=== PATIENT | female | born 1970 | race Caucasian/White ===

== ENCOUNTER → 2016-06-02 | Outpatient (CLI) | payer BC ==
--- NOTE | 2016-06-03 14:24 | MAMMOGRAPHY REPORT ---
BILATERAL DIGITAL SCREENING MAMMOGRAM TOMOSYNTHESIS WITH CAD: 06/02/2016 CLINICAL HISTORY: Routine screening. Patient has no complaints. TECHNIQUE: Breast tomosynthesis in addition to standard 2D mammography was performed. Current study was also evaluated with a Computer Aided Detection (CAD) system. COMPARISON: Comparison is made to exams dated: 05/30/2015 mammogram, 03/24/2013 mammogram, 05/25/2014 m ammogram, 04/10/2013 mammogram, and 04/10/2013 ultrasound - [facility]. BREAST COMPOSITION: The tissue of both breasts is heterogeneously dense, which may obscure small ma sses. FINDINGS: There are fluctuating bilateral masses. Circumscribed borders are best appreciated on th e tomosynthesis images. These findings most likely represent benign fibrocystic changes/fluctuating cysts. No suspicious spiculated or irregular mass, architectural distortion or cluster of new susp icious microcalcifications is seen. IMPRESSION: ACR BI-RADS CATEGORY 1: NEGATIVE There is no mammographic evidence of malignancy. A 1 year screening mammogram is recommended. The p atient will receive written notification of the results. Approximately 10% of breast cancers are not detected with mammography. A negative mammographic repor t should not delay biopsy if a clinically suggestive mass is present. Janet Roldan M.D. ay/:06/02/2016 16:24:34 Extracting Machine Operator: Castro JACOB(R)(M), [facility] letter sent: Normal 1/2 BI-RADS Code: ACR BI-RADS Category 1: Negative
== END | disposition home or self-care (01) ==
LOC: C.MAMM 07:40
PROVIDERS: ATTEND Family Medicine
DX: Z12.31 Encounter for screening mammogram for malignant neoplasm of breast (principal)

== ENCOUNTER → 2017-03-29 | Outpatient (CLI) | payer BC | END | disposition home or self-care (01) | LOC: C.PAPS 10:18 | PROVIDERS: ATTEND Obstetrics & Gynecology | DX: Z01.419 Encounter for gynecological examination (general) (routine) without abnormal findings (principal) ==

== ENCOUNTER → 2017-04-26 | Outpatient (CLI) | payer BC ==
--- NOTE | 2017-04-26 13:24 | DIAGNOSTIC IMAGING REPORT ---
CHEST 2 VIEWS ROUTINE CLINICAL HISTORY: PNEUMONIA dyspnea COMPARISON STUDY: No previous studies for comparison. FINDINGS: The bones soft tissues and hemidiaphragms are normal. The cardiomediastinal silhouette is normal. The lungs are clear. The pulmonary vasculature is normal. IMPRESSION: Negative chest. The above report was generated using voice recognition software. It may contain grammatical, syntax or spelling errors. Electronically signed by: Reginaldo Carmona M.D. 04/26/2017 1:23 PM Dictated Date/Time: 04/26/2017 1:23 PM
== END | disposition home or self-care (01) ==
LOC: C.RADBC 13:13
PROVIDERS: ATTEND Family Medicine
DX: J18.9 Pneumonia, unspecified organism (principal)

== ENCOUNTER → 2017-06-09 | Outpatient (CLI) | payer OTHER ==
--- NOTE | 2017-06-09 15:38 | MAMMOGRAPHY REPORT ---
BILATERAL DIGITAL SCREENING MAMMOGRAM TOMOSYNTHESIS WITH CAD: 06/09/2017 CLINICAL HISTORY: Routine screening. Patient has no complaints. TECHNIQUE: Breast tomosynthesis in addition to standard 2D mammography was performed. Current study was also evaluated with a Computer Aided Detection (CAD) system. COMPARISON: Comparison is made to exams dated: 06/02/2016 mammogram, 05/30/2015 mammogram, 05/25/2014 ma mmogram, 04/10/2013 mammogram, 04/10/2013 ultrasound, and 03/24/2013 mammogram - [facility]. BREAST COMPOSITION: The tissue of both breasts is heterogeneously dense, which may obscure small mas ses. FINDINGS: There is a focal asymmetry with possible associated microcalcifications in the upper outer middle to posterior right breast, for which additional spot compression tomosynthesis, spot magnific ation views and possible ultrasound are recommended. There is fluctuating nodularity in the breasts. No other suspicious mass, architectural distortion o r cluster of suspicious microcalcifications is seen. IMPRESSION: ACR BI-RADS CATEGORY 0: INCOMPLETE EVALUATION: NEED ADDITIONAL IMAGING EVALUATION The focal asymmetry with possible associated microcalcifications in the right upper outer breast need s additional evaluation. The patient will be called to schedule an appointment. Approximately 10% of breast cancers are not detected with mammography. A negative mammographic report should not delay biopsy if a clinically suggestive mass is present. Janet Roldan M.D. ay/:06/09/2017 08:15:32 Wreath Inspector: Laura JACOB(Genoveva)(Rizwana), [facility] letter sent: Addl Imaging 0 BI-RADS Code: ACR BI-RADS Category 0: Incomplete Evaluation: Need Additional Imaging Evaluation
== END | disposition home or self-care (01) ==
LOC: C.MAMM 07:18
PROVIDERS: ATTEND Family Medicine
DX: Z12.31 Encounter for screening mammogram for malignant neoplasm of breast (principal); N64.9 Disorder of breast, unspecified

== ENCOUNTER → 2017-06-18 | Outpatient (CLI) | payer OTHER ==
--- NOTE | 2017-06-21 07:41 | MAMMOGRAPHY REPORT ---
UNILATERAL RIGHT DIGITAL DIAGNOSTIC MAMMOGRAM TOMOSYNTHESIS AND TARGETED RIGHT ULTRASOUND: 06/18/2017 CLINICAL HISTORY: Callback from screening mammogram for right breast mass and possible associated tita cifications. TECHNIQUE: Breast tomosynthesis in addition to standard 2D mammography was performed. Spot magnific ation right cc and ML views and spot compression right CC and MLO 2-D and tomosynthesis images were o btained. COMPARISON: Comparison is made to exams dated: 06/09/2017 mammogram, 06/02/2016 mammogram, 05/30/2015 m ammogram, 05/25/2014 mammogram, 04/10/2013 mammogram, and 04/10/2013 ultrasound - [facility]. BREAST COMPOSITION: The tissue of the right breast is heterogeneously dense, which may obscure small masses. FINDINGS: Spot compression views demonstrate an oval obscured mass which measures approximately 11 mm in the right upper outer quadrant. Spot magnification views demonstrate a few faint punctate calcif ications seen within this region in the right upper outer quadrant. When comparing to prior exams, t he calcifications do not appear significantly changed dating back to at least the 2016 exam and are c onsidered benign given the punctate morphology and stability and likely represent fibrocystic changes . Targeted ultrasound was performed of the right upper outer quadrant in the region of the mammographic mass. In the right breast at 10:00, 2 cm from the nipple, there is an oval circumscribed anechoic b enign simple cyst which measures 7 x 7 x 3 mm. In the right breast at 11:00 periareolar region, ther e is an oval circumscribed anechoic mass with a few thin internal septations, measuring 10 x 7 mm, al so consistent with a cyst. Another benign simple cyst measuring 8 mm is seen within the right 11:30 breast, 3 cm from the nipple. Multiple other small cysts were seen during the exam. The 10:00 mass is felt to correspond with the mammographic mass. No suspicious solid masses were seen. IMPRESSION: ACR BI-RADS CATEGORY 2: BENIGN, TARGETED ULTRASOUND ACR BI-RADS CATEGORY 2: BENIGN Multiple benign cysts seen within the right 10-11:30 breast on ultrasound, one of which is felt to co rrespond with the mammographic mass. A few punctate benign appearing calcifications are seen in the region of the mass which are stable dating back to the 2016 exam and are considered benign given the morphology and stability and felt to represent fibrocystic changes. There is no mammographic or targeted sonographic evidence of malignancy. A 1 year screening mammogram is recommended. The patient has been verbally notified of the results. Approximately 10% of breast cancers are not detected with mammography. A negative mammographic report should not delay biopsy if a clinically suggestive mass is present. Pushpa Magallon M.D. ah/:06/18/2017 12:24:36 Regulatory Attorney: Castro JACOB(Genoveva)(M), [facility] letter sent: Normal 1/2 BI-RADS Code: ACR BI-RADS Category 2: Benign Ultrasound BI-RADS: ACR BI-RADS Category 2: Benign
== END | disposition home or self-care (01) ==
LOC: C.MAMM 09:49
PROVIDERS: ATTEND Family Medicine
DX: N60.11 Diffuse cystic mastopathy of right breast (principal); N63.11 Unspecified lump in the right breast, upper outer quadrant; R92.1 Mammographic calcification found on diagnostic imaging of breast